=== PATIENT | male | born 1955 | race Two or more races ===

== ENCOUNTER 2018-03-24 07:13 | Outpatient (CLI) | payer OTHER ==
[~2018-03-24 07:13] MED LIST: AVAPRO300 MG; CARTIA XT120 MG PO; COUMADIN7.5 MG PO; CRESTOR10 MG; CRESTOR10 MG PO; GLUCOPHAGE XR500 MG PO; LANOXIN0.25 MG PO
== END 2018-03-24 08:07 | disposition home or self-care (01) ==
LOC: NUCLEAR 07:13
DX: I11.9 Hypertensive heart disease without heart failure (principal); E11.9 Type 2 diabetes mellitus without complications; I25.10 Atherosclerotic heart disease of native coronary artery without angina pectoris
CPT/HCPCS: 78452; 93017; A9500; J0153

== ENCOUNTER 2020-09-29 07:12 | Outpatient (CLI) | payer OTHER | END 2020-09-29 07:13 | disposition home or self-care (01) | LOC: NUCLEAR 07:12 | PROVIDERS: ATTEND Internal Medicine Cardiovascular Disease | DX: R07.89 Other chest pain (principal) | CPT/HCPCS: 78452; 93017; A9500; J0153 ==

== ENCOUNTER 2022-08-02 07:16 | Outpatient (CLI) | payer OTHER | END 2022-08-02 07:17 | disposition home or self-care (01) | LOC: NUCLEAR 07:16 | PROVIDERS: ATTEND Internal Medicine Cardiovascular Disease | DX: I82.403 Acute embolism and thrombosis of unspecified deep veins of lower extremity, bilateral (principal) ==

== ENCOUNTER 2022-08-09 12:23 | Inpatient (IN) | payer OTHER ==
[~2022-08-09] VITALS: Ht 180.3 cm; Wt 88.5 kg
--- NOTE | 2022-08-09 12:50 | NUR ---
SE RECIBE PTE MASCULINO DE 66 ANOS AAELRTA Y ORIENTADO X3 QUIEN AL MOMENTO REFIER EDOLOR DE PECHO. PTE REFIERE PADECER DE A FIB. SE PASA PTE A UNIDAD DE DOLOR DE PECHO SE CANALIZA A PTE BAJO MEDIDAS ACEPTICAS Y SE COLECTAN MUESTRAS POR PROTOCOLO. SE MONITOREAN S/V Y SE UBICA EN FLOYD 18.
--- NOTE | 2022-08-09 14:45 | NUR ---
PTE EVALUADO POR DR CATES. QUIEN [place] MED SE EDUCA A PTE SOBRE EL MISMO Y REFIER ENERTNDER. SE EJECUTAN ORDENES BAJO MEIDDAS ACEPTICAS. PTE PEND A RESULTADOS DE TROPO Y CONSULTA CON MED INTERNA.
--- NOTE | 2022-08-09 15:46 | NUR ---
SE RECIBE PACIENTE MASCULINO DE 66 ANOS DE EDAD UNICADO EN AREA DE CHEST PAIN EN FLOYD CON BARANDAS ELAVADAS. PACIENTE AL MOMENTO DE LA ENTREGA SE ENCUENTRA ALERTA, CONCIENTE Y ORIENTADO X3. ES ENTREGADO POR PENELOPE GALLAGHER CUAL ORIENTA SOBRE EL USHA. PACIENTE CONECTADO A MONITOR CARDIACO OXIMETRIA DE PULSO. PACIENTE ESTABLE DENTRO DE CAMPUZANO CONDICION. MANTIENE TRIDIL BAJANDO A 3ML/HRS, EL MISMO ESTA REGULADO POR IV PUMD. CANALIZADO CON ANGIO #18 EN BRAZO CESARIO Y EN BRAZO DERECHO, AMBAS VENOPUNCIONES LIDA DE EDEMA Y ERITEMA. PACIENTE SE MANTIENE AL MOMENTO EN ESPERA DE CONSULTA CON MEDICINA INTERNA.
== END 2022-08-11 15:34 | disposition home or self-care (01) | DRG 315 ==
LOC: ER 12:23 → MEDJ 19:01
PROVIDERS: ADMIT Internal Medicine; ATTEND Internal Medicine
PROC: 4A12X4Z Monitoring of Cardiac Electrical Activity, External Approach (ICD-10-PCS; principal; 2022-08-09)
PROC: B24BYZZ Ultrasonography of Heart with Aorta using Other Contrast (ICD-10-PCS; 2022-08-09)
DX: I30.9 Acute pericarditis, unspecified (principal); I48.20 Chronic atrial fibrillation, unspecified; I11.9 Hypertensive heart disease without heart failure; I87.2 Venous insufficiency (chronic) (peripheral); E11.8 Type 2 diabetes mellitus with unspecified complications; J45.909 Unspecified asthma, uncomplicated; Z79.84 Long term (current) use of oral hypoglycemic drugs

== ENCOUNTER → 2022-08-29 | Outpatient (CLI) | payer OTHER | END | disposition home or self-care (01) | LOC: NUCLEAR 09:00 | PROVIDERS: ATTEND Internal Medicine | DX: I73.9 Peripheral vascular disease, unspecified (principal); I87.2 Venous insufficiency (chronic) (peripheral) ==

== ENCOUNTER 2022-12-27 07:15 | Outpatient (CLI) | payer OTHER | END 2022-12-27 07:22 | disposition home or self-care (01) | LOC: NUCLEAR 07:15 | PROVIDERS: ATTEND Internal Medicine | DX: I25.119 Atherosclerotic heart disease of native coronary artery with unspecified angina pectoris (principal); R07.9 Chest pain, unspecified | CPT/HCPCS: 78452; 93017; A9500 ==

== ENCOUNTER 2025-01-18 07:15 | Outpatient (CLI) | payer OTHER | END 2025-01-18 07:16 | disposition home or self-care (01) | LOC: NUCLEAR 07:15 | PROVIDERS: ATTEND Internal Medicine | DX: I20.9 Angina pectoris, unspecified (principal) | CPT/HCPCS: 78452; 93017; A9500 ==